=== PATIENT | male | born 1955 | race Two or more races ===

== ENCOUNTER 2020-10-01 19:08 | Emergency (ER) | payer OTHER, BC ==
[~2020-10-01] VITALS: Ht 190.5 cm; Wt 83.9 kg
[2020-10-01] MEDS ORDERED: CRESTOR20 MG PO (19:39)
[2020-10-01] MEDS ORDERED: TIROSINT75 MCG (19:40)
== END 2020-10-01 22:52 | disposition home or self-care (01) ==
LOC: ER 19:08
DX: M94.0 Chondrocostal junction syndrome [Tietze] (principal); R07.89 Other chest pain